=== PATIENT | male | born 1955 ===

== ENCOUNTER → 2016-07-24 | Outpatient (CLI) | payer OTHER ==
[2016-07-24 13:26] LABS: ALT/SGPT 61 U/L (12-78); AMYLASE 50 U/L (25-115); AST/SGOT 32 U/L (15-37); BLOOD UREA NITROGEN 12 mg/dl (7-18); BUN/CREATININE RATIO 19.8 (10-20); CALCIUM 8.5 mg/dl (8.5-10.1); CARBON DIOXIDE 31 mmol/L (21-32); CHLORIDE 107 mmol/L (98-107); CREATININE 0.61 mg/dl (0.60-1.40); GLUCOSE 91 mg/dl (70-99); SODIUM 142 mmol/L (136-145)
[2016-07-24 13:28] LABS: HEMATOCRIT 42.9 % (42-52); MEAN CELL VOLUME 93.7 fL (80-100); MEAN CORPUSCULAR HEMOGLOBIN 31.9 pg (25-34); MEAN PLATELET VOLUME 11.2 fL (7.4-10.4); PLATELET COUNT 149 K/uL (130-400); RED BLOOD COUNT 4.58 M/uL (4.7-6.1); WHITE BLOOD COUNT 6.16 K/uL (4.8-10.8)
[2016-07-24 13:31] LABS: URINE APPEARANCE CLEAR (CLEAR); URINE BILIRUBIN NEG (NEG); URINE COLOR YELLOW; URINE EPITHELIAL CELL AUTO 0-5 /lpf (0-5); URINE NITRITE NEG (NEG); URINE PH 5.5 (4.5-7.5); URINE SPECIFIC GRAVITY 1.016 (1.000-1.030); UROBILINOGEN NEG (NEG); ZZUR CULT IF INDIC CLEAN CATCH NO
[2016-07-24 13:33] LABS: MANUAL MICROSCOPIC REQUIRED? NO; REVIEW REQ? NO
[2016-07-24 13:36] LABS: ALKALINE PHOSPHATASE 101 U/L (45-117)
== END | disposition home or self-care (01) ==
LOC: C.LABMFLN 09:31
PROVIDERS: ATTEND Family Medicine
DX: J45.909 Unspecified asthma, uncomplicated (principal); K59.09 Other constipation; R53.83 Other fatigue; Z72.0 Tobacco use

== ENCOUNTER → 2017-03-03 | Outpatient (CLI) | payer OTHER ==
[2017-03-03 13:17] LABS: URINE APPEARANCE CLEAR (CLEAR); URINE BILIRUBIN NEG (NEG); URINE COLOR YELLOW; URINE NITRITE NEG (NEG); URINE PH 6.5 (4.5-7.5); URINE SPECIFIC GRAVITY 1.011 (1.000-1.030); UROBILINOGEN NEG (NEG)
[2017-03-03 13:22] LABS: MANUAL MICROSCOPIC REQUIRED? NO; REVIEW REQ? NO
[2017-03-03 13:30] LABS: BASO % 0.5 %; BASO ABS # 0.04 K/uL (0-0.2); COMPLETE YES; EOS % 4.9 %; HEMATOCRIT 44.2 % (42-52); IG% 0.2 %; LYMPH % 37.5 %; LYMPH ABS # 3.11 K/uL (1.2-3.4); MEAN CELL VOLUME 93.2 fL (80-100); MEAN CORPUSCULAR HGB CONC 33.3 g/dl (32-36); MEAN PLATELET VOLUME 10.6 fL (7.4-10.4); MONO % 6.5 %; NEUT % 50.4 %; PLATELET COUNT 188 K/uL (130-400); RED BLOOD COUNT 4.74 M/uL (4.7-6.1); WHITE BLOOD COUNT 8.29 K/uL (4.8-10.8)
[2017-03-03 14:27] LABS: FERRITIN 102.6 ng/ml (8.0-388.0)
== END | disposition home or self-care (01) ==
LOC: C.LABMFLN 08:43
PROVIDERS: ATTEND Family Medicine
DX: F17.200 Nicotine dependence, unspecified, uncomplicated (principal); R63.4 Abnormal weight loss; D64.9 Anemia, unspecified